=== PATIENT | female | born 1960 | race Caucasian/White ===

== ENCOUNTER 2017-08-17 13:47 | Observation (INO) | payer SELFPAY ==
[2017-08-17 13:49] VITALS: BP 146/89; PULSE 94; RESP 18; TEMP 98.2; O2SAT 99
[2017-08-17 15:11] LABS: AUTOMATED NEUTROPHIL # 2.2 TH/MM3 (1.8-7.7); BASOPHIL % 0.7 % (0.0-2.0); EOSINOPHIL # 0.1 TH/MM3 (0-0.4); EOSINOPHIL % 2.4 % (0.0-4.0); HEMATOCRIT 38.1 % (35.0-46.0); HEMOGLOBIN 12.6 GM/DL (11.6-15.3); LYMPHOCYTE # 1.5 TH/MM3 (1.0-4.8); MEAN CELL VOLUME 85.7 FL (80.0-100.0); MEAN CORPUSCULAR HEMOGLOBIN 28.4 PG (27.0-34.0); MEAN CORPUSCULAR HGB CONC 33.1 % (32.0-36.0); MEAN PLATELET VOLUME 7.3 FL (7.0-11.0); MONOCYTE # 0.3 TH/MM3 (0-0.9); NEUT % 52.9 % (16.0-70.0); PLATELET COUNT 257 TH/MM3 (150-450); RED BLOOD COUNT 4.44 MIL/MM3 (4.00-5.30); RED CELL DISTRIBUTION WIDTH 13.5 % (11.6-17.2); WHITE BLOOD COUNT 4.1 TH/MM3 (4.0-11.0)
[2017-08-17 15:14] LABS: PROTHROMBIN TIME - PATIENT 10.6 SEC (9.8-11.6)
[2017-08-17 15:32] LABS: BICARBONATE 28.7 MEQ/L (21.0-32.0); BLOOD UREA NITROGEN 21 MG/DL (7-18); CHLORIDE 107 MEQ/L (98-107); CREATININE 0.84 MG/DL (0.50-1.00); GLOMERULAR FILTRATION RATE 70 ML/MIN (>89); GLUCOSE,RANDOM 95 MG/DL (74-106); SODIUM (NA) 139 MEQ/L (136-145)
[2017-08-17 15:35] LABS: TROPONIN I LESS THAN 0.02 NG/ML (0.02-0.05)
--- NOTE | 2017-08-17 15:48 | RADRPT ---
EXAM DATE/TIME: 08/17/2017 14:26 [place] COMPARISON: No previous studies available for comparison. INDICATIONS : Shortness of breath and chest pain today. MEDICAL HISTORY : None. SURGICAL HISTORY : None. ENCOUNTER: Initial ACUITY: 1 day PAIN SCORE: 7/10 LOCATION: Bilateral chest FINDINGS: PA and lateral views of the chest demonstrate the lungs to be symmetrically aerated without evidence of mass, infiltrate or effusion. The cardiomediastinal contours are unremarkable. Osseous structure s are intact. CONCLUSION: 1. No acute cardiopulmonary findings. Spenser Engle MD on August 17, 2017 at 14:33 Board Certified Radiologist. This report was verified electronically.
--- NOTE | 2017-08-17 16:37 | PD ---
HPI Chief Complaint: Cardiac Complaint Time Seen by Provider: 16:16 Travel History International Travel<30 days: No Contact w/Intl Traveler<30days: No Traveled to known affect area: No History of Present Illness HPI The patient was seen and examined in the presence of the nurse. This patient complains of chest pain. She had a spell yesterday afternoon. She had a second spell around 1030 this morning. She describes a substernal area pressure and heaviness. Symptoms are not pleuritic. She denies injury or fever or cough. She denies personal history of cardiac disease. She does have history of elevated cholesterol and is not on medication. Denies ever having stress testing. She is currently pain-free. Duration was about 10 minutes. No alleviating factors. No exacerbating factors PFSH Past Medical History Medical History: Denies Significant Hx Tetanus Vaccination: Unknown Influenza Vaccination: Yes ?: Not Past Surgical History Hysterectomy: Yes Other Surgery: Yes (breast aug, sinus surgery) Social History Alcohol Use: Yes (occasionally) Tobacco Use: No Substance Use: No Allergies-Medications (Allergen,Severity, Reaction): Coded Allergies: No Known Allergies (Unverified , 08/17/17) Reported Meds & Prescriptions Reported Meds & Active Scripts Active No Active Prescriptions or Reported Medications Review of Systems General / Constitutional: No: Fever Eyes: No: Visual changes HENT: No: Headaches Cardiovascular: Positive: Chest Pain or Discomfort Respiratory: No: Shortness of Breath Gastrointestinal: No: Abdominal Pain Genitourinary: No: Dysuria Musculoskeletal: No: Pain Skin: No Rash Neurologic: No: Weakness Psychiatric: No: Depression Endocrine: No: Polydipsia Hematologic/Lymphatic: No: Easy Bruising Physical Exam Narrative GENERAL: Well-nourished, well-developed patient in no apparent distress. SKIN: Focused skin assessment reveals no rash and nodules. Skin is Warm and dry. HEAD: Atraumatic. Normocephalic. EYES: Pupils equal and round. No scleral icterus. No injection or drainage. ENT: No nasal bleeding or discharge. Mucous membranes pink and moist. NECK: Trachea midline. No JVD. CARDIOVASCULAR: Regular rate and rhythm. No murmur appreciated. RESPIRATORY: No accessory muscle use. Clear to auscultation. Breath sounds equal bilaterally. GASTROINTESTINAL: Abdomen soft, non-tender, nondistended. Hepatic and splenic margins not palpable. MUSCULOSKELETAL: No obvious deformities. No clubbing. No cyanosis. No edema. NEUROLOGICAL: Awake and alert. No obvious cranial nerve deficits. Motor grossly within normal limits. Normal speech. PSYCHIATRIC: Appropriate mood and affect; insight and judgment normal. Data Data Last Documented VS Vital Signs Date Time Temp Pulse Resp B/P (MAP) Pulse Ox O2 Delivery O2 Flow Rate FiO2 08/17/17 13:49 98.2 94 18 146/89 (108) 99 Orders Orders Electrocardiogram (08/17/17 13:59) Complete Blood Count With Diff (08/17/17 13:59) Basic Metabolic Panel (Bmp) (08/17/17 13:59) Ckmb (Isoenzyme) Profile (08/17/17 13:59) Troponin I (08/17/17 13:59) Iv Access Insert/Monitor (08/17/17 13:59) Ecg Monitoring (08/17/17 13:59) Oxygen Administration (08/17/17 13:59) Oximetry (08/17/17 13:59) Act Partial Throm Time (Ptt) (08/17/17 13:59) Prothrombin Time / Inr (Pt) (08/17/17 13:59) Chest, Pa & Lat (08/17/17 ) CKMB (08/17/17 14:15) CKMB% (08/17/17 14:15) Labs Laboratory Tests Test 08/17/17 14:15 White Blood Count 4.1 TH/MM3 Red Blood Count 4.44 MIL/MM3 Hemoglobin 12.6 GM/DL Hematocrit 38.1 % Mean Corpuscular Volume 85.7 FL Mean Corpuscular Hemoglobin 28.4 PG Mean Corpuscular Hemoglobin Concent 33.1 % Red Cell Distribution Width 13.5 % Platelet Count 257 TH/MM3 Mean Platelet Volume 7.3 FL Neutrophils (%) (Auto) 52.9 % Lymphocytes (%) (Auto) 36.0 % Monocytes (%) (Auto) 8.0 % Eosinophils (%) (Auto) 2.4 % Basophils (%) (Auto) 0.7 % Neutrophils # (Auto) 2.2 TH/MM3 Lymphocytes # (Auto) 1.5 TH/MM3 Monocytes # (Auto) 0.3 TH/MM3 Eosinophils # (Auto) 0.1 TH/MM3 Basophils # (Auto) 0.0 TH/MM3 CBC Comment DIFF FINAL Differential Comment Prothrombin Time 10.6 SEC Prothromb Time International Ratio 1.0 RATIO Activated Partial Thromboplast Time 24.8 SEC Blood Urea Nitrogen 21 MG/DL Creatinine 0.84 MG/DL Random Glucose 95 MG/DL Calcium Level 9.0 MG/DL Sodium Level 139 MEQ/L Potassium Level 4.0 MEQ/L Chloride Level 107 MEQ/L Carbon Dioxide Level 28.7 MEQ/L Anion Gap 3 MEQ/L Estimat Glomerular Filtration Rate 70 ML/MIN Total Creatine Kinase 113 U/L Creatine Kinase MB 1.2 NG/ML Troponin I LESS THAN 0.02 NG/ML MDM Medical Decision Making Medical Screen Exam Complete: Yes Emergency Medical Condition: Yes Medical Record Reviewed: Yes Differential Diagnosis Differential diagnosis includes MD, angina, pericarditis, pleurisy, GERD, anxiety. Narrative Course I have reviewed the patient's electronic medical record. Patient had recently suspicious chest pain with risk factors of possible hyperlipidemia and hypertension General labs and cardiac enzymes are normal Chest x-ray normal I reviewed her EKG which shows sinus rhythm with no acute ST elevation Extended cardiac monitoring reveals sinus rhythm without ectopy She had an aspirin prior to arrival Blood pressure 244 systolic 30 minutes after clonidine is 190 systolic We will reassess in 30 more minutes and treat if indicated After blood pressure is better controlled I plan to make her a 23 hour observation on telemetry in the chest pain center in order to rule out cardiac cause of her symptoms Diagnosis Primary Impression: Chest pain in adult Additional Impressions: Hypertension Qualified Codes: I10 - Essential (primary) hypertension Hyperlipidemia Qualified Codes: E78.5 - Hyperlipidemia, unspecified Admitting Information Admitting Physician Requests: Observation Scripts No Active Prescriptions or Reported Meds Angus Pa MD Aug 17, 2017 16:37
[2017-08-17 16:47] VITALS: BP 133/90; PULSE 82; RESP 16; O2SAT 100
[2017-08-17 17:30] VITALS: BP 129/82; PULSE 80; RESP 14; O2SAT 100
--- NOTE | 2017-08-17 17:33 | PD.CARD.PN ---
Subjective Subjective Remarks Patient signed out AMA before being seen Objective Vital Signs / I&O Vital Signs Date Time Temp Pulse Resp B/P (MAP) Pulse Ox O2 Delivery O2 Flow Rate FiO2 08/17/17 17:30 08/17/17 17:30 80 14 129/82 (98) 100 08/17/17 16:47 82 16 133/90 (104) 100 08/17/17 13:49 98.2 94 18 146/89 (108) 99 Laboratory Laboratory Tests Test 08/17/17 14:15 White Blood Count 4.1 TH/MM3 Red Blood Count 4.44 MIL/MM3 Hemoglobin 12.6 GM/DL Hematocrit 38.1 % Mean Corpuscular Volume 85.7 FL Mean Corpuscular Hemoglobin 28.4 PG Mean Corpuscular Hemoglobin Concent 33.1 % Red Cell Distribution Width 13.5 % Platelet Count 257 TH/MM3 Mean Platelet Volume 7.3 FL Neutrophils (%) (Auto) 52.9 % Lymphocytes (%) (Auto) 36.0 % Monocytes (%) (Auto) 8.0 % Eosinophils (%) (Auto) 2.4 % Basophils (%) (Auto) 0.7 % Neutrophils # (Auto) 2.2 TH/MM3 Lymphocytes # (Auto) 1.5 TH/MM3 Monocytes # (Auto) 0.3 TH/MM3 Eosinophils # (Auto) 0.1 TH/MM3 Basophils # (Auto) 0.0 TH/MM3 CBC Comment DIFF FINAL Differential Comment Prothrombin Time 10.6 SEC Prothromb Time International Ratio 1.0 RATIO Activated Partial Thromboplast Time 24.8 SEC Blood Urea Nitrogen 21 MG/DL Creatinine 0.84 MG/DL Random Glucose 95 MG/DL Calcium Level 9.0 MG/DL Sodium Level 139 MEQ/L Potassium Level 4.0 MEQ/L Chloride Level 107 MEQ/L Carbon Dioxide Level 28.7 MEQ/L Anion Gap 3 MEQ/L Estimat Glomerular Filtration Rate 70 ML/MIN Total Creatine Kinase 113 U/L Creatine Kinase MB 1.2 NG/ML Troponin I LESS THAN 0.02 NG/ML Imaging Last 24 hours Impressions Chest X-Ray 08/17/17 0000 Signed Impressions: Service Date/Time: July 14:26 - CONCLUSION: 1. No acute cardiopulmonary findings. MD Juventino Prater Donald J. MD Aug 17, 2017 17:33
--- NOTE | 2017-08-18 13:49 | EKG ---
Date Performed: 08/17/2017 Time Performed: 14:12:21 PTAGE: 57 years EKG: Sinus rhythm POSSIBLE RIGHT VENTRICULAR CONDUCTION DELAY BORDERLINE ECG NO PREVIOUS TRACING 08/17/2017 1412 DOCTOR: Jessica Mejias Interpretating Date/Time 08/18/2017 13:47:30
== END 2017-08-17 17:31 | disposition left against medical advice (07) ==
LOC: NEPC 13:47 → NEDH 16:39
PROVIDERS: ADMIT Internal Medicine Interventional Cardiology; ATTEND Internal Medicine Interventional Cardiology
DX: R07.9 Chest pain, unspecified (principal); R06.02 Shortness of breath; I10 Essential (primary) hypertension; E78.00 Pure hypercholesterolemia, unspecified
CPT/HCPCS: 71046; 80048; 82550; 82552; 84484; 85025; 85610; 85730; 93005; 99285; G0378